=== PATIENT | male | born 1975 | race African-American/Black ===

== ENCOUNTER 2016-10-16 12:37 | Emergency (ER) ==
[2016-10-16 12:37] VITALS: BMI 29.0
--- NOTE | 2016-10-16 13:02 | ED.PDOC ---
General ED Provider: Dr. FRANCISCO RAMIREZ Chief Complaint: Back Pain Stated Complaint: Patient states that while at work 3 days ago injured his back lifting heavy parts while packing. Pain mostly on the upper back and radiates to the right ribs. Pain is not better with rest. Time Seen by Physician: 12:59 Mode of Arrival: Walk-In Information Source: Patient Exam Limitations: No limitations Primary Care Provider: MELISA CHARLES Nursing and Triage Documentation Reviewed and Agree: Yes Review of Systems - Review Of Systems Constitutional: Reports: No symptoms Eyes: Reports: No symptoms Ears, Nose, Mouth, Throat: Reports: No symptoms Respiratory: Reports: No symptoms Cardiac: Reports: No symptoms GI: Reports: No symptoms : Reports: No symptoms Musculoskeletal: Reports: Back pain Skin: Reports: No symptoms Neurological: Reports: Anxiety Endocrine: Reports: No symptoms Hematologic/Lymphatic: Reports: No symptoms All Other Systems: Reviewed and Negative Past Medical History - Past Medical History Endocrine: Reports: Dyslipidemia Cardiovascular: Reports: Hypertension Respiratory: Reports: None Hematological: Reports: None Gastrointestinal: Reports: None Genitourinary: Reports: None Neuro/Psych: Reports: None Musculoskeletal: Reports: None Cancer: Reports: None - Surgical History General Surgical History: Reports: Other (vasectomy ) - Family History Family History: Reports: None - Social History Smoking Status: Current every day smoker, Heavy tobacco smoker Hx Substance Use: No Alcohol Screening: Occasionally Physical Exam - Physical Exam Appearance: Ill-appearing, Well-nourished Ill-appearing: Mild Pain Distress: Moderate Eyes: NIXON, EOMI, Conjunctiva clear ENT: Ears normal, Nose normal, Oropharynx normal Neck: Supple Respiratory: Airway patent, Breath sounds clear, Breath sounds equal, Respirations nonlabored Cardiovascular: RRR, Pulses normal, No rub, No murmur GI/: Soft, Nontender, No masses, Bowel sounds normal, No Organomegaly Musculoskeletal: Normal strength, No edema, No calf tenderness, Limited ROM Skin: Warm, Dry, Normal color Neurological: Sensation intact, Motor intact, Reflexes intact, Cranial nerves intact, Alert, Oriented Psychiatric: Affect appropriate, Mood appropriate Re-Evaluation - Re-Evaluation Time of Re-Evaluation: 13:40 Status: Improved Pain Level: much improved. Critical Care Note - Critical Care Note Total Time (mins): 0 Course - Course Orders, Labs, Meds: Orders Category Date Time Status Ketorolac Tromethamine [Toradol] MEDS 10/16/16 13:06 Discontinued 60 mg IM ONCE STA Orphenadrine Citrate [Norflex] MEDS 10/16/16 13:06 Discontinued 60 mg IM ONCE STA Medications Discontinued Medications Generic Name Dose Route Start Last Admin Trade Name Freq PRN Reason Stop Dose Admin Ketorolac Tromethamine 60 mg 10/16/16 13:06 10/16/16 13:17 Toradol IM 10/16/16 13:07 60 mg ONCE STA Administration Orphenadrine Citrate 60 mg 10/16/16 13:06 10/16/16 13:16 Norflex IM 10/16/16 13:07 60 mg ONCE STA Administration Vital Signs: Temp Pulse Resp BP Pulse Ox 10/16/16 13:48 98.8 F 79 16 115/74 96 10/16/16 12:37 97.3 F L 83 20 143/87 H 98 Departure - Departure Time of Disposition: 13:44 Disposition: HOME SELF-CARE Discharge Problem: Backache Low back sprain Qualifiers: Encounter type: initial encounter Qualifier Code: (S33.9XXA) Sprain of unspecified parts of lumbar spine and pelvis, initial encounter Instructions: Lower Back Exercises (ED), Low Back Strain (ED) Condition: Fair Pt referred to PMD for follow-up: Yes Additional Instructions: Rest Take medications as prescribed. Follow up with PCP in 3 days Prescriptions: Hydrocodone/Acetaminophen [[place] 5-325 Tablet] 1 tab PO Q6HR PRN #12 tablet PRN Reason: PAIN Ibuprofen [Motrin] 600 mg PO Q6H PRN #30 tablet PRN Reason: Analgesia Allergies/Adverse Reactions: Allergies cyclobenzaprine [From Flexeril] Adverse Reaction (Verified 10/16/16 13:38) gabapentin [From Neurontin] Adverse Reaction (Verified 10/16/16 13:38) ondansetron [From Zofran (as hydrochloride)] Adverse Reaction (Verified 13:38) tramadol [From Ultram] Adverse Reaction (Verified 10/16/16 13:38) Home Medications: Ambulatory Orders Amlodipine Besylate [Norvasc] 5 mg PO DAILY 04/06/16 Atorvastatin Calcium [Lipitor] 10 mg PO DAILY 04/06/16 Buspirone HCl 5 mg PO DAILY 04/06/16 Diazepam [Valium] 2 mg PO DAILY 04/06/16 Omeprazole Magnesium [Prilosec] 10 mg PO DAILY 04/06/16 Hydrocodone/Acetaminophen [[place] 5-325 Tablet] 1 tab PO Q6HR PRN #12 tablet Ibuprofen [Motrin] 600 mg PO Q6H PRN #30 tablet 10/16/16 Disposition Discussed With: Patient, Family
[2016-10-16] MEDS ORDERED: NORFLEX IM STA (13:06)
[2016-10-16] MEDS ORDERED: TORADOL IM STA (13:06)
[2016-10-16 13:49] VITALS: BP 115/74; TEMP 98.8
== END 2016-10-16 13:55 | disposition home or self-care (01) ==
LOC: ED 12:37
DX: S33.9XXA Sprain of unspecified parts of lumbar spine and pelvis, initial encounter (principal); X50.0XXA Overexertion from strenuous movement or load, initial encounter; Y99.0 Civilian activity done for income or pay; F17.210 Nicotine dependence, cigarettes, uncomplicated
CPT/HCPCS: 96372; 99282

== ENCOUNTER 2016-10-28 16:45 | Emergency (ER) ==
[2016-10-28 16:58] VITALS: BP 119/81; TEMP 98; BMI 28.1
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
--- NOTE | 2016-10-28 18:09 | DI ---
EXAM: Three views of the right hand. HISTORY: Injury with pain. FINDINGS: There is a transverse displaced fracture through the right third metacarpal. The joint spa kandis are maintained. There is dorsal soft tissue swelling. Impression: Transverse displaced fracture through the right third metacarpal.
--- NOTE | 2016-10-28 22:26 | DI ---
EXAM: Right wrist three-view HISTORY: Pain COMPARISON: None FINDINGS: There is a mildly displaced fracture of the mid diaphysis third metacarpal with posterior angulation distal fracture fragment. There is a horizontal lucency present in the mid scaphoid rep resenting a possible fracture. The joints are normal. No focal soft tissue abnormality. IMPERSSION: 1. Mildly displaced fracture mid diaphysis third metacarpal. 2. Horizontal lucency mid scaphoid representing a possible fracture. Recommend clinical correlatio n for point tenderness. Report faxed at time of dictation.
== END 2016-10-28 18:04 | disposition home or self-care (01) ==
LOC: ED 16:45
DX: S62.302A Unspecified fracture of third metacarpal bone, right hand, initial encounter for closed fracture (principal); W20.8XXA Other cause of strike by thrown, projected or falling object, initial encounter; F17.210 Nicotine dependence, cigarettes, uncomplicated
CPT/HCPCS: 99283